=== PATIENT | female | born 1960 | race Caucasian/White ===

== ENCOUNTER 2021-04-26 18:24 | Emergency (ER) | payer MEDICARE, SELFPAY ==
--- NOTE | ~2021-04-26 | XR_ITS ---
EXAMINATION: XR knee LT min 4V DATE: 04/26/2021 18:55 INDICATION: Left knee pain. Trauma. TECHNIQUE: 4 views of left knee were obtained. COMPARISON: None. FINDINGS: There is a patellofemoral compartment arthroplasty in near-anatomic alignment. No periprost hetic lucency to suggest loosening or infection. No fracture. There is moderate osteoarthritis of med ial compartment and mild osteoarthritis of lateral compartment. There is a small knee joint effusion. IMPRESSION: 1. Moderate left knee osteoarthritis. 2. Patellofemoral compartment arthroplasty in near-anatomic alignment. 3. Small knee joint effusion. Reviewed, dictated and finalized at location A.
[2021-04-26 18:30] VITALS: BP 168/91; PULSE 78; RESP 20; TEMP 37.2; O2SAT 100
--- NOTE | 2021-04-26 18:34 | ED.LOWEXIN ---
HPI - Extremity Injury (Lower) General Chief Complaint: Extremity Injury, Lower Stated Complaint: Left knee injury Time Seen by Provider: 04/26/21 18:34 Source: patient and RN notes reviewed History of Present Illness HPI Narrative: Patient is 60-year-old female who presents the urgent care with complaints of left knee pain. Patient states that she fell onto her left knee in the garage at around 1 PM this afternoon. Patient states she proceeded to get in her pool and lay out for several hours since then. Patient states that she does have an artificial left knee and has noted a lot of increase in pain since the fall at 1 PM. Patient states that hurts to bend the knee or bear any weight. Patient has not taken anything for her pain. No other acute complaints. No acute distress noted. Patient aware of the plan of care. Some parts of this dictation were generated by voice recognition software and may contain typographical and/or grammatical inaccuracies. Related Data Allergies Allergy/AdvReac Type Severity Reaction Status Date / Time amoxicillin Allergy Intermediate Hives Verified 04/26/21 18:59 cephalexin [From Keflex] Allergy Intermediate Hives Verified 04/26/21 18:59 Review of Systems Review of Systems: CONSTITUTIONAL: Denies fever, chills, or sweats. EYES: Denies visual changes, redness, or discharge. ENT: Denies rhinorrhea, congestion, sore throat, or otalgia. CARDIOVASCULAR: Denies chest pain, palpitations, or edema. RESPIRATORY: Denies cough or dyspnea. GASTROINTESTINAL: Denies abdominal pain, nausea, vomiting, or diarrhea. GENITOURINARY: Denies dysuria or hematuria. SKIN: Reports of a laceration to the left knee MUSCULOSKELETAL: Reports of left knee pain NEUROLOGIC: Denies headache, numbness, or weakness. All other systems reviewed are negative, except as documented in HPI. PMFSH Comments At the time of my signature, I reviewed and agree with the nursing past medical, surgical, social, and family history. There is no relevant family history pertinent to the patient complaint. Exam Narrative: GENERAL: This is a well-nourished, well-developed patient, in no apparent distress. HEAD: normocephalic, atraumatic. EYES: PERRL. Sclera clear/white. Vision is grossly intact. EARS: External ears normal NOSE: External nose normal with no obvious nasal discharge, nares without redness, no rhinorrhea. THROAT: Mucous membranes moist NECK: Neck supple CARDIOVASCULAR: Regular rate and rhythm without murmurs, gallops, or rubs. RESPIRATORY: Clear to auscultation. Breath sounds equal bilaterally. No wheezes, rales, or rhonchi. SKIN: 5 x 5 cm area of the erythemic superficial abrasion to the anterior aspect of the left knee with center laceration measuring 3 cm in length and 0.25 cm in width with minimal depth. NEURO: awake, alert, and oriented to person, place and time. There were no obvious focal neurologic abnormalities. EXTREMITIES: No clubbing, cyanosis, or edema. No joint tenderness, effusion, or edema noted. No calf tenderness. Negative Homans sign bilaterally. Course Vital Signs Vital signs: Vital Signs Temperature 99 F 04/26/21 18:30 Pulse Rate 78 04/26/21 18:30 Respiratory Rate 20 04/26/21 18:30 Blood Pressure 168/91 H 04/26/21 18:30 Pulse Oximetry 100 04/26/21 18:30 Temperature 99 F 04/26/21 18:30 Pulse Rate 78 04/26/21 18:30 Respiratory Rate 20 04/26/21 18:30 Blood Pressure 168/91 H 04/26/21 18:30 Pulse Oximetry 100 04/26/21 18:30 Reviewed-patient is informed that they may have pre-hypertension or hypertension based on a blood pressure reading in the department. I recommend the patient call the primary care provider listed on their discharge instructions or a physician of their choice this week to arrange follow-up for further evaluation of possible pre-hypertension or hypertension. MDM - Extremity Injury (Lower) MDM Narrative Medical decision making narrative: Reviewed x-ray results with
== END 2021-04-26 19:13 | disposition home or self-care (01) ==
PROVIDERS: Emergency Provider Nurse Practitioner Family
DX: S81.012A Laceration without foreign body, left knee, initial encounter (principal); S80.02XA Contusion of left knee, initial encounter; W19.XXXA Unspecified fall, initial encounter; I10 Essential (primary) hypertension; E11.9 Type 2 diabetes mellitus without complications; Z96.652 Presence of left artificial knee joint; Z85.038 Personal history of other malignant neoplasm of large intestine
CPT/HCPCS: 73564; 99213; G0463